=== PATIENT | female | born 1955 | race Caucasian/White ===

== ENCOUNTER 2017-03-21 10:21 | Emergency (ER) | payer BC ==
--- NOTE | 2017-03-21 10:40 | EDPHY ---
HPI/HX/ROS/PE/MDM Narrative: CHIEF COMPLAINT:Chest pain HPI: This is a 62-year-old female with no significant past medical history. She reports developing midsternal chest pain that began last night around dinner time. The pain felt like a bruise, and she kept rubbing it to try and make it feel better. She also reports being sleepy than normal. The pain eventually went away. This morning, the patient was speaking with a co-worker who recently was admitted to the hospital for a cardiac issue recommended that she see her doctor. She saw her doctor, Dr. Lenore Bella, this morning and had some mild chest discomfort at that time. She was sent to the emergency department for further evaluation. Patient has no known cardiac risk factors but does have a fair amount of cardiovascular disease in her family. REVIEW OF SYSTEMS: Aside from elements discussed in the HPI, a comprehensive 10-point review of systems was reviewed and is negative. PMH: No history of cardiac disease. No hypertension or hypercholesterolemia. SOCIAL HISTORY: Works at [employer]. Denies alcohol or drug abuse. PHYSICAL EXAM: General:Patient is alert, in no acute distress. ENT:Eyes are normal to inspection. ENT inspection normal. Neck: Normal inspection. Full range of motion. Respiratory:No respiratory distress. Breath sounds normal bilaterally. Cardiovascular: Regular rate and rhythm. Strong peripheral pulses. Normal cap refill. Abdomen:The abdomen is nontender to palpation. There are no peritoneal signs. There are normal bowel sounds. Back: Normal to inspection. No tenderness to palpation. Skin: Normal color. No rash. Warm and dry. Extremities: Normal appearance. Full range of motion. Neuro: Oriented x3. Normal motor function. Normal sensory function. MDM: This patient presents with mid-sternal chest pain that is atypical for ACS and sounds much like GERD. We performed out standard chest pain evaluation in the ED including CXR, ECG, troponin and other labs, all of which are normal. The patient is asymptomatic. We discussed options and she declines admission for observation. I will refer her to cardiology. I have recommended a trial of prilosec, and we discussed strict return precautions. I see no signs of TAD, PNA, PTX, ACS, PE. - Data Points Imaging Results: Imaging Impressions Chest X-Ray 03/21/17 10:29 Impression: Normal chest x-ray. Laboratory Results: Laboratory Results 03/21/17 10:46 03/21/17 10:46 03/21/17 03/21/17 10:46 10:46 WBC 5.67 10^3/uL 10^3/uL (3.80-9.50) RBC 4.34 10^6/uL 10^6/uL (4.18-5.33) Hgb 13.5 g/dL g/dL (12.6-16.3) Hct 39.6 % % (38.0-47.0) MCV 91.2 fL fL (81.5-99.8) MCH 31.1 pg pg (27.9-34.1) MCHC 34.1 g/dL g/dL (32.4-36.7) RDW 12.9 % % (11.5-15.2) Plt Count 228 10^3/uL 10^3/uL (150-400) MPV 10.4 fL fL (8.7-11.7) Neut % (Auto) 46.8 % % (39.3-74.2) Lymph % (Auto) 42.3 % % (15.0-45.0) [place] % (Auto) 8.3 % % (4.5-13.0) Eos % (Auto) 1.9 % % (0.6-7.6) Baso % (Auto) 0.5 % % (0.3-1.7) Nucleat RBC Rel Count 0.0 % % (0.0-0.2) Absolute Neuts (auto) 2.65 10^3/uL 10^3/uL (1.70-6.50) Absolute Lymphs (auto) 2.40 10^3/uL 10^3/uL (1.00-3.00) Absolute Monos (auto) 0.47 10^3/uL 10^3/uL (0.30-0.80) Absolute Eos (auto) 0.11 10^3/uL 10^3/uL (0.03-0.40) Absolute Basos (auto) 0.03 10^3/uL 10^3/uL (0.02-0.10) Absolute Nucleated RBC 0.00 10^3/uL 10^3/uL (0-0.01) Immature Gran % 0.2 % % (0.0-1.1) Immature Gran # 0.01 10^3/uL 10^3/uL (0.00-0.10) Sodium 141 mEq/L mEq/L (134-144) Potassium 3.9 mEq/L mEq/L (3.5-5.2) Chloride 101 mEq/L mEq/L (97-110) Carbon Dioxide 28 mEq/l mEq/l (22-31) Anion Gap 12 mEq/L mEq/L (8-16) BUN 18 mg/dL mg/dL (7-23) Creatinine 0.8 mg/dL mg/dL (0.6-1.0) Estimated GFR > 60 Glucose 77 mg/dL mg/dL (70-100) Calcium 9.5 mg/dL mg/dL (8.5-10.4) Troponin I < 0.012 ng/mL ng/mL (0.000-0.034) General Time Seen by Provider: 03/21/17 10:29 Initial Vital Signs: Initial Vital Signs Temperature (C) 36.5 C 03/21/17 10:25 Heart Rate 71 03/21/17 10:25 Respiratory Rate 16 03/21/17 10:25 Blood Pressure 128/82 H 03/21/17 10:25 O2 Sat (%) 98 03/21/17 10:25 O2 Delivery Mode Room Air Allergies/Adverse Reactions: No Known Allergies Allergy (Unverified 03/21/17 10:24) Home Medications: Medication Instructions Recorded Progesterone 03/21/17 Departure - Departure Disposition: Home, Routine, Self-Care Clinical Impression: Chest pain Condition: Good Instructions: Chest Pain (ED) Additional Instructions: 1. Take Prilosec (available over the counter) as directed daily for one week. 2. Follow up with [facility] within one week for further testing. 3. Return to the Emergency Department for fever, chest pain, shortness of breath , increasing pain or other worsening of condition. As we discussed, it is impossible to fully rule out heart disease as the cause of your chest pain in the emergency department. We would be happy to reevaluate you and observe you in the hospital at any time. Referrals: Melissa East MD [Primary Care Provider] - As per Instructions [facility] [Provider Group] - As per Instructions Report Scribed for: Pb Rooney Report Scribed by: Madhuri Atkinson Date of Report: 03/21/17 Time of Report: 11:34 Physician Review and Approval Statement: Portions of this note were transcribed by an ED scribe. I personally performed the history, physical exam, and medical decision making; and confirm the accuracy of the information in the transcribed note.
--- NOTE | 2017-03-21 10:42 | CPEKG ---
Heart Rate: 67 RR Interval: 896 P-R Interval: 164 QRSD Interval: 74 QT Interval: 420 QTC Interval: 444 P Pimento: 56 QRS Pimento: -18 T Wave Pimento: 43 EKG Severity - OTHERWISE NORMAL ECG - EKG Impression: SINUS RHYTHM EKG Impression: BORDERLINE LEFT AXIS DEVIATION Electronically Signed By: Cory Marks 24-Mar-2017 16:27:05
[2017-03-21 10:53] LABS: % IMMATURE GRANULYOCYTES 0.2 % (0.0-1.1); ABSOLUTE IMMATURE GRANULOCYTES 0.01 10^3/uL (0.00-0.10); ADD DIFF? NO; ADD MORPH? NO; ADD SCAN? NO; ATYPICAL LYMPHOCYTE FLAG 0 (0-99); FRAGMENT RBC FLAG 0 (0-99); HEMATOCRIT 39.6 % (38.0-47.0); HEMOGLOBIN 13.5 g/dL (12.6-16.3); LEFT SHIFT FLG 0 (0-99); LIPEMIA HEMOLYSIS FLAG 90 (0-99); MEAN CELL HEMOGLOBIN 31.1 pg (27.9-34.1); MEAN CELL HEMOGLOBIN CONCENTR. 34.1 g/dL (32.4-36.7); MEAN CELL VOLUME 91.2 fL (81.5-99.8); MEAN PLATELET VOLUME 10.4 fL (8.7-11.7); PLATELET CLUMPS FLAG 0 (0-99); PLATELET COUNT 228 10^3/uL (150-400); RED BLOOD CELL COUNT 4.34 10^6/uL (4.18-5.33); RED CELL DISTRIBUTION WIDTH 12.9 % (11.5-15.2)
[2017-03-21 11:09] LABS: ANION GAP 12 mEq/L (8-16); CALCIUM 9.5 mg/dL (8.5-10.4); CARBON DIOXIDE 28 mEq/l (22-31); CHLORIDE 101 mEq/L (97-110); CREATININE 0.8 mg/dL (0.6-1.0); GLOMERULAR FILTRATION RATE > 60; GLUCOSE 77 mg/dL (70-100); POTASSIUM 3.9 mEq/L (3.5-5.2); SODIUM 141 mEq/L (134-144)
[2017-03-21 11:21] LABS: TROPONIN I < 0.012 ng/mL (0.000-0.034)
[2017-03-21] MEDS ORDERED: FAMOTIDINE 20 MG TAB PO ONE (11:27)
[2017-03-21 11:54] VITALS: BP 150/90; PULSE 69; RESP 13; TEMP 98.8; O2SAT 97
== END 2017-03-21 11:54 | disposition home or self-care (01) ==
DX: R10.9 Unspecified abdominal pain (principal)

== ENCOUNTER → 2017-04-25 | Outpatient (CLI) | payer BC | LOC: CIMAGING 08:11 | PROVIDERS: ATTEND Family Medicine | DX: Z12.31 Encounter for screening mammogram for malignant neoplasm of breast (principal) | CPT/HCPCS: G0202 ==

== ENCOUNTER → 2018-05-25 | Outpatient (CLI) | payer BC | LOC: CIMAGING 08:15 | PROVIDERS: ATTEND Family Medicine | DX: Z12.31 Encounter for screening mammogram for malignant neoplasm of breast (principal); R92.8 Other abnormal and inconclusive findings on diagnostic imaging of breast ==

== ENCOUNTER → 2018-06-05 | Outpatient (CLI) | payer BC | LOC: FIMAGING 09:26 | PROVIDERS: ATTEND Family Medicine | DX: R92.8 Other abnormal and inconclusive findings on diagnostic imaging of breast (principal) ==